=== PATIENT | female | born 1960 | race Caucasian/White ===

== ENCOUNTER 2023-01-23 05:06 | Observation (INO) ==
--- NOTE | 2022-12-25 12:38 | PAT Medication Instructions ---
Medication Instructions Date of Service December 25, 2022 Home Medications Vitamin C 1 tab PO QAM Vitamin D3 1 tab PO QAM acetaminophen 650 mg tablet,extended release 650 mg PO Q12H PRN hydrochlorothiazide 25 mg tablet 25 mg PO QAM lisinopril 40 mg tablet 40 mg PO QAM DO NOT take the morning of surgery Vitamin C 1 tab PO QAM Vitamin D3 1 tab PO QAM hydrochlorothiazide 25 mg tablet 25 mg PO QAM lisinopril 40 mg tablet 40 mg PO QAM Take morning of surgery With a small sip of water, OTHERWISE NOTHING TO EAT OR DRINK AFTER MIDNIGHT: acetaminophen 650 mg tablet,extended release 650 mg PO Q12H PRN(if needed) Take evening before surgery acetaminophen 650 mg tablet,extended release 650 mg PO Q12H PRN(if needed) Other Notes If you have any questions please call us at [phone] or [phone] or [phone] or [phone]
--- NOTE | 2023-01-03 08:26 | Anesthesiology Consultation ---
Date of Service January 03, 2023 Assessment & Plan (1) Encounter for pre-operative examination: - K 5.4: I called PCP office and relayed K level. Optimization form also completed, to be faxed with PAT testing to PCP. - Outpatient joint assessment: Patient is currently scheduled for inpatient pathway. If re-evaluated pending system levels during current pandemic/surgeon requests outpatient pathway, patient is not recommended candidate for outpatient joint program from anesthesia standpoint. Chart Review Chart Review: Pending: Refer to Additional Notes / Consult section and Patient seen in Pre Admission Testing Teaching & Discussion Pre-Anesthesia Teaching/Discussion Notes: Instructed NPO after midnight before surgery, except medications with 15 cc of water. Medication instructions provided according to the PAT guidelines. History Surgery Operation Date: 01/23/23 07:00 Proposed Procedures p Left Total Knee Arthroplasty - Jt Barksdale MD Height/Weight Height: 5 ft 3 in Weight: 112.491 kg Allergies Allergy/AdvReac Type Severity Reaction Status Date / Time adhesive tape Allergy Rash Verified 12/25/22 11:59 Medications Home Medications Medication Instructions Recorded Confirmed Last Taken Vitamin C 1 tab PO QAM 12/25/22 12/25/22 Unknown Vitamin D3 1 tab PO QAM 12/25/22 12/25/22 Unknown acetaminophen 650 mg 650 mg PO Q12H PRN Pain 12/25/22 12/25/22 Unknown tablet,extended release hydrochlorothiazide 25 mg tablet 25 mg PO QAM 12/25/22 12/25/22 Unknown lisinopril 40 mg tablet 40 mg PO QAM 12/25/22 12/25/22 Unknown atorvastatin 10 mg tablet 10 mg PO QAM 01/03/23 01/03/23 Unknown Additional Notes: Pt reports [id number] mg QAM was recently added to her medications by PCP. She was advised to take medication as usual including DOS and this was written on provided medication instructions. She verbalized understanding and agreement, denied questions, concerns or additional medications/supplements. 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 Exercise / Class Metabolic Activity III < 4 Walking/Shop/Light housework (denies chest discomfort or shortness of breath with usual activities) Past Family History Family History Father Slow to wake up after anesthesia Past Surgical History Surgical History History of colonoscopy History of lumbar surgery History of removal of cyst breast History of tonsillectomy History of wisdom tooth extraction Past Anesthesia History No Hx of Anesthesia Complications and Other (slow to wake after anesthesia; father slow to wake after anesthesia) History of PONV No Hx of PONV and Hx of Motion Sickness Social History Smoking Status: Never smoker Do You Dip or Chew Tobacco: No Hx Alcohol Use: Yes alcohol intake frequency: holidays/special occasions only Hx Substance Use: No substance use type: does not use Review of Systems Occasional snoring, denies witnessed apneas. Patient denies chest pain, shortness of breath, dyspnea on exertion, reflux, fever, chills, cough, wheezing, or palpitations. Physical Exam Vital Signs Vitals BP 128/78 P 70 TEMP 97.9 SP02 100% on RA RESP 17 Physical Full cervical extension range of motion without pain TMD 3.5 finger breadths Mallampati Score 1 Dentition: intact, denies chipped or loose teeth, caps/crowns, implants or bridges Lungs: normal respiratory effort. Good air movement, clear throughout to auscultation, no adventitious breath sounds Cardiac: regular rate and rhythm, no murmurs noted Carotid arteries: negative bruit bilat Lab Results Anesthesia Preop Results Results Anesthesia Widget: WBC 6.95 K/ul (4.8-10.8) 01/03/23 Hgb 10.9 g/dl (12.0-16.0) L 01/03/23 Hct 33.7 % (37.0-47.0) L 01/03/23 Plt 304 K/uL (130-400) 01/03/23 Na 138 mmol/L (136-145) 01/03/23 K 5.4 mmol/L (3.5-5.1) H 01/03/23 Cl 106 mmol/L (98-107) 01/03/23 CO2 24 mmol/L (21-32) 01/03/23 BUN 45 mg/dl (6-23) H 01/03/23 Creat 1.29 mg/dl (0.6-1.2) H 01/03/23 Glucose Level 93 mg/dl (70-99(Fasting)) 01/03/23 PT 10.6 Seconds (9.0-12.0) 01/03/23 PTT 28.4 Seconds (21.0-31.0) 01/03/23 INR 1.0 (0.9-1.1) 01/03/23 Urine Color Yellow 01/03/23 Urine Appearance Clear (Clear) 01/03/23 Urine pH 6.0 (4.5-7.5) 01/03/23 Urine Specific [place] 1.015 (1.000-1.030) 01/03/23 Urine Protein Negative (Negative) 01/03/23 Urine Glucose (UA) Negative (Negative) 01/03/23 Urine Ketones Negative (Negative) 01/03/23 Urine Blood Negative (Negative) 01/03/23 Urine Nitrite Negative (Negative) 01/03/23 Urine Bilirubin Negative (Negative) 01/03/23 Urine Urobilinogen Negative (Negative) 01/03/23 Urine Leukocyte Esterase Negative (Negative) 01/03/23 Blood Type A Positive 01/03/23 Antibody Screen NEGATIVE 01/03/23 Testing Electrocardiogram Date: 12/27/22 NSR, rate 75 bpm Chest X-Ray Date: 01/03/23 No acute process COVID-19 Risk Screen Screening Information COVID-19 Screen Date: 01/03/23 Exposure 21 Days Family/Household +COVID Last 21 Days: No Exposure 10 Days Any COVID Exposure Last 10 Days: No Symptoms Last 10 Days Experienced COVID Sx Last 10 Days: No + COVID 0-90 Days COVID + in Last 0-90 Days: No
--- NOTE | 2023-01-22 11:19 | History & Physical Report ---
Date of Service January 22, 2023 Assessment & Plan (1) Primary osteoarthritis of left knee: Plan: Treatment options discussed with the patient. She has failed conservative measures. She would like to proceed with surgical intervention. Risks, benefits and alternatives to surgery including but not limited to infection, DVT, pain, stiffness, need for revision surgery, damage to blood vessels, damage to nerves, PE, , were discussed with the patient and they wish to proceed. Plan for left total knee arthroplasty scheduled for [facility] on January [address] Barksdale. Plan on Xarelto postoperatively for DVT prophylaxis. Plan on outpatient physical therapy. All questions answered. Patient will follow-up postop. History of Present Illness Chief Complaint: Left knee pain Primary Care Provider: Elizabeth Pringle PA-C 62-year-old female with past medical history significant for hypertension, high cholesterol who presents with ongoing left knee pain. Patient has pain interfering with her daily activities. She has failed conservative measures including injections and anti-inflammatories. She would like to proceed with surgical invention. Patient denies headaches, sweats, fevers, chills, double vision, blurred vision, cough, sore throat, dysphagia, chest pain, sob, wheezing, n/v/d/c, numbness, tingling, fatigue, urinary symptoms, mood disorders. ROS positive for left knee pain and stiffness. Allergies Allergy/AdvReac Type Severity Reaction Status Date / Time adhesive tape Allergy Rash Verified 12/25/22 11:59 Home Medications Medication Instructions Recorded Confirmed Type Vitamin C 1 tab PO QAM 12/25/22 12/25/22 History Vitamin D3 1 tab PO QAM 12/25/22 12/25/22 History acetaminophen 650 mg 650 mg PO Q12H PRN Pain 12/25/22 12/25/22 History tablet,extended release hydrochlorothiazide 25 mg tablet 25 mg PO QAM 12/25/22 12/25/22 History lisinopril 40 mg tablet 40 mg PO QAM 12/25/22 12/25/22 History atorvastatin 10 mg tablet 10 mg PO QAM 01/03/23 01/03/23 History Past Med/Surg History Medical History Borderline hyperlipidemia History of benign breast biopsy HTN (hypertension) controlled, stable per pt Slow to wake up after anesthesia denies needing re-intubation Urinary incontinence per pt, r/t previous back surgery "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" Surgical History History of colonoscopy History of lumbar surgery History of removal of cyst breast History of tonsillectomy History of wisdom tooth extraction Family History Father Slow to wake up after anesthesia Social History Smoking Status: Never smoker Second Hand Exposure: No; Do You Dip or Chew Tobacco: No; Hx Alcohol Use: Yes Hx Substance Use: No Preferred Language: Tamazight Communication Ability: Effective Header Set Up Operator Required: No Beliefs That Will Affect Care: None Current Living Situation: Spouse Feels Safe at Home: Yes Safety Concerns: Feels Safe At This Time Assistive Devices: Glasses Review of Systems All systems reviewed & are unremarkable except as noted in HPI & below Physical Exam Constitutional: well developed and well nourished; no acute distress Eyes: PERRL, conjunctivae normal, anicteric sclerae ENMT: external ear and nose normal, oropharynx normal Neck: trachea midline, no thyromegaly Respiratory: normal respiratory effort, lungs clear to auscultation Cardiovascular: RRR, no murmur, no edema Musculoskeletal: Left knee: Varus alignment. There is tenderness medial joint line. Range of motion is 10 to 115 degrees. Crepitation with range of motion. Positive Pasha's. Stable to valgus varus stress test. Skin: no rashes, warm and dry Neurologic: patellar DTR's 2+ bilat, sensation intact Psychiatric: A+Ox3, euthymic affect Results & Data Diagnostic Findings Left knee radiographs demonstrate tricompartment arthritic changes, [id number] medial compartment. There is particular osteophytes all 3 compartments.
[2023-01-23] MEDS ORDERED: dexAMETHasone 4 MG TAB PO SCH (06:00)
[2023-01-23] MEDS ORDERED: TRANEXAMIC ACID 1,000 MG **IV Pre-op IV SCH (06:00)
[2023-01-23] MEDS ORDERED: TRANEXAMIC ACID 1,000 MG **IV Intra-op IV SCH (06:00)
[2023-01-23] MEDS ORDERED: GABAPENTIN 600 MG DOSE PO SCH (06:00)
[2023-01-23] MEDS ORDERED: METOCLOPRAMIDE HCL 10 MG TABLET PO SCH (06:00)
[2023-01-23] MEDS ORDERED: ACETAMINOPHEN 500 MG TAB PO SCH (06:00)
[2023-01-23] MEDS ORDERED: ROPIVACAINE 0.5% HCL/PF 150 MG, BUPIVACAINE 0.75% MPF 20 ML, EPINEPHrine 30MG/30ML (OR ... INSTIL SCH (06:00)
[2023-01-23] MEDS ORDERED: LR 500ML BOLUS, THEN 15ML/HR IV SCH (06:00)
[2023-01-23] MEDS ORDERED: ceFAZolin 2000MG 2,000 MG/15 ML SYR IV SCH (06:00)
[2023-01-23] MEDS ORDERED: CeleBREX 200 MG CAP PO SCH (06:00)
[2023-01-23] MEDS ORDERED: FAMOTIDINE 20 MG TAB PO SCH (06:00)
[2023-01-23] MEDS ORDERED: BUPIVACAINE 0.25% PF 30 ML VIAL ONE (06:25)
[2023-01-23] MEDS ORDERED: BUPIVACAINE 0.5 % 5 MG/1 ML PF 10ML VIAL ONE (06:25)
[2023-01-23] MEDS ORDERED: DEXAMETHASONE SOD INJ 4 MG/ML VIAL ONE (06:26)
[2023-01-23] MEDS ORDERED: EPINEPHrine INJ 1 MG/ML AMP ONE (06:26)
[2023-01-23] MEDS ORDERED: MIDAZOLAM HCL 1 MG/ML 2ML VIAL ONE (06:33)
[2023-01-23] MEDS ORDERED: LIDOCAINE 2% 2 ML VIAL/AMP(20MG/ML) INFIL ONE (06:33)
[2023-01-23] MEDS ORDERED: PROPOFOL IV EMULSION 10 MG/ML 20 ML VIAL IV ONE ×5 (06:33→09:19)
[2023-01-23] MEDS ORDERED: fentaNYL citrate PF 100 MCG/2 ML VIAL ONE (06:33)
[2023-01-23] MEDS ORDERED: ORTHO JOINT ANESTHETIC ONE (07:01)
[2023-01-23] MEDS ORDERED: ATROPINE SULFATE 0.1 MG/ML 10ML SYR IV PRN (07:03)
[2023-01-23] MEDS ORDERED: ONDANSETRON INJ 2 MG/ML 2 ML VIAL IV PRN ×2 (07:03→10:42)
[2023-01-23] MEDS ORDERED: fentaNYL citrate PF 100 MCG/2 ML VIAL IV PRN (07:03)
[2023-01-23] MEDS ORDERED: ePHEDrine sulfate 50 MG/ML AMP IV PRN (07:03)
--- NOTE | 2023-01-23 07:03 | Anesthesiology Consultation ---
Date of Service January 23, 2023 Assessment & Plan Chart Review Chart Review: Acceptable Risk for Surgery and Patient NOT seen in Pre Admission Testing Consults Requested none ASA ASA3 Proposed Anesthesia Anesthesia Type: MAC Spinal Regional Regional Laterality: Left Site: Adductor Canal Risk / Benefits Reviewed With: PT / POA / Parent / Guardian, Accepts Plan and Informed Consent Obtained History Surgery Operation Date: 01/23/23 07:00 Proposed Procedures p Left Total Knee Arthroplasty - Jt Barksdale MD Height/Weight Height: 5 ft 3 in Weight: 111.901 kg Allergies Allergy/AdvReac Type Severity Reaction Status Date / Time adhesive tape Allergy Rash Verified 01/23/23 05:54 Medications Home Medications Medication Instructions Recorded Confirmed Last Taken Vitamin C 1 tab PO QAM 12/25/22 01/23/23 01/22/23 17:00 Vitamin D3 1 tab PO QAM 12/25/22 01/23/23 01/22/23 17:00 acetaminophen 650 mg 650 mg PO Q12H PRN Pain 12/25/22 01/23/23 01/21/23 tablet,extended release hydrochlorothiazide 25 mg tablet 25 mg PO QAM 12/25/22 01/23/23 01/22/23 07:00 lisinopril 40 mg tablet 40 mg PO QAM 12/25/22 01/23/23 01/22/23 07:00 atorvastatin 10 mg tablet 10 mg PO QAM 01/03/23 01/23/23 01/23/23 03:15 Active Medications Generic Name Dose Route Start Last Admin Trade Name Freq PRN Reason Stop Dose Admin Acetaminophen 1,000 mg 01/23/23 06:00 01/23/23 05:57 Acetaminophen 500 Mg Tab PO 01/23/23 18:00 1,000 mg PREOP ALISON Administration Celecoxib 200 mg 01/23/23 06:00 01/23/23 05:57 Celebrex 200 Mg Cap PO 01/23/23 18:00 200 mg PREOP ALISON Administration Dexamethasone 8 mg 01/23/23 06:00 01/23/23 05:57 Dexamethasone 4 Mg Tab PO 01/23/23 18:00 8 mg PREOP ALISON Administration Famotidine 20 mg 01/23/23 06:00 01/23/23 05:57 Famotidine 20 Mg Tab PO 01/23/23 18:00 20 mg PREOP ALISON Administration Gabapentin 600 mg 01/23/23 06:00 01/23/23 05:57 Gabapentin 600 Mg Dose PO 01/23/23 18:00 600 mg PREOP ALISON Administration Lactated Ringer's 1,000 mls @ 15 mls/hr 01/23/23 06:00 01/23/23 05:53 Lr IV 01/23/23 18:00 15 mls/hr .Q24H ALISON Administration Metoclopramide HCl 10 mg 01/23/23 06:00 01/23/23 05:57 Metoclopramide Hcl 10 Mg Tablet PO 01/23/23 18:00 10 mg PREOP ALISON Administration NPO Date Last Intake of Fluids: 01/22/23 Time Last Intake of Fluids: 22:00 Date Last Intake of Solids: 01/22/23 Time Last Intake of Solids: 14:00 Past Medical History Medical History Borderline hyperlipidemia History of benign breast biopsy HTN (hypertension) controlled, stable per pt Slow to wake up after anesthesia denies needing re-intubation Urinary incontinence per pt, r/t previous back surgery "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" Exercise / Class Metabolic Activity II 4-5 Yardwork/Stairs/Walk up hill Past Family History Family History Father Slow to wake up after anesthesia Past Surgical History Surgical History History of colonoscopy History of lumbar surgery History of removal of cyst breast History of tonsillectomy History of wisdom tooth extraction Past Anesthesia History No Hx of Anesthesia Complications and No Family Hx of Anesthesia Complications History of PONV No Hx of PONV and No Hx of Motion Sickness Social History Smoking Status: Never smoker Do You Dip or Chew Tobacco: No Hx Alcohol Use: Yes alcohol intake frequency: holidays/special occasions only Hx Substance Use: No substance use type: does not use Physical Exam Vital Signs Last Vital Signs Temp 36.7 C 01/23/23 05:36 Pulse 90 01/23/23 05:36 Resp 20 01/23/23 05:36 BP 148/80 H 01/23/23 05:36 Pulse Ox 96 01/23/23 05:36 O2 Del Method Room Air 01/23/23 05:36 Constitutional + obese ENMT Mouth: no dentition abnormality Thyromental Distance: > or= 3.5 Finger Breadths Mallampati Class: II Neck normal visual inspection Respiratory normal respiratory effort Auscultation: lungs clear to auscultation bilaterally Cardiovascular Rate/Rhythm: regular rate and regular rhythm Psychiatric Orientation: alert Testing Electrocardiogram Date: 12/27/22 NSR, rate 75 bpm Chest X-Ray Date: 01/03/23 No acute process
--- NOTE | 2023-01-23 07:06 | History & Physical Bridge Note ---
Date of Service January 23, 2023 History & Physical Bridge Note I have examined the patient, reviewed the History & Physical and in the interval since the performance of the History & Physical I have noted the following changes of clinical significance: no changes noted
[2023-01-23] MEDS ORDERED: ONDANSETRON INJ 2 MG/ML 2 ML VIAL ONE (07:38)
[2023-01-23] MEDS ORDERED: ePHEDrine sulfate 50 MG/ML SYR ONE (07:57)
[2023-01-23] MEDS ORDERED: PHENYLEPHRINE 100MCG/ML 5ML SYR ONE (07:57)
[2023-01-23] MEDS ORDERED: PHENYLEPHRINE HCL 10 MG/ML VIAL ONE (08:11)
--- NOTE | 2023-01-23 09:20 | Post Operative Brief Note ---
Immediate Post Op Note v1 Date of Surgery January 23, 2023 Pre & Post Diagnosis Operation Date: 01/23/23 07:00 Pre-Op Diagnosis: Left Knee Osteoarthritis, Morbid obesity BMI 43.7 Post-Op Diagnosis: Left Knee Osteoarthritis., Morbid obesity BMI 43.7 I identified the patient and participated in the time-out.: Yes Procedure Operation Date: 01/23/23 07:00 Actual Procedures p Left Total Knee Arthroplasty(Left), application felicity and Acticoat superficial wound VAC, increased difficulty morbid obesity BMI 43.7 - Jt Barksdale MD Surgeon Jt Barksdale MD Ornamental Ironworker Senthil Valencia. Estimated Blood Loss 5 Findings Consistent with Post-Op Diagnosis Specimens Bone cuts Drains Hemovac Drain Anesthesia Type MAC Spinal Regional Complications none Disposition Disposition: Recovery Room Overlapping Procedure I was present for: the critical portions of procedure. Back up surgeon: was not required during procedure.
--- NOTE | 2023-01-23 10:08 | Anesthesiology Progress Note ---
Date of Service January 23, 2023 Anesthesia Post Procedure Vital Signs Vital Signs: Temp Pulse Resp BP Pulse Ox O2 Del Method O2 Flow Rate 01/23/23 10:00 87 16 99/53 L 94 Room Air 01/23/23 09:50 85 17 106/52 L 96 Nasal Cannula 2 01/23/23 09:43 36.1 C L 88 17 96/52 L 96 Nasal Cannula 2 01/23/23 05:36 36.7 C 90 20 148/80 H 96 Room Air Pain Intensity Left Knee: Pain Intensity: 2 Transfer of Care Handoff Completed per policy Notes Mental Status: alert / awake / arousable Patient Amnestic to Procedure: Yes Nausea / Vomiting: adequately controlled Pain: adequately controlled Airway Patency, RR, SpO2: stable & adequate BP & HR: stable & adequate Hydration State: stable & adequate Neuraxial Anesthesia: was administered and sensory block is resolving Anesthetic Complications: no major complications apparent and Pt Satisfied with anesthetic care
--- NOTE | 2023-01-23 10:34 | XRay Report ---
LEFT KNEE 2 VIEWS History: Left total knee arthroplasty. Degenerative arthritis. Postop. FINDINGS: The patient is status post a left total knee arthroplasty. The hardware is intact. No fract ure or dislocation. Skin saud and surgical drains are in place. IMPRESSION: Left total knee arthroplasty. No evidence for hardware complication. ACT 112: Negative or not required by law. Electronically signed by: Usman Sanchez M.D. 01/23/2023 10:33 AM
[2023-01-23] MEDS ORDERED: bisacodyL 10 MG SUPP PR PRN (10:42)
[2023-01-23] MEDS ORDERED: HYDROmorphone INJ 0.5 MG/0.5 ML SYR IV PRN (10:42)
[2023-01-23] MEDS ORDERED: MAGNESIUM HYDROXIDE SUSP 30 ML UDC PO PRN (10:42)
[2023-01-23] MEDS ORDERED: diphenhydrAMINE 50 MG/ML VIAL IV PRN (10:42)
[2023-01-23] MEDS ORDERED: NALOXONE HCL 0.4 MG/1 ML VIAL/CARP IV PRN (10:42)
[2023-01-23] MEDS: SODIUM CHLORIDE 0.9% 1000ML 1,000 ML IV SCH ×2 (11:11→20:28)
[2023-01-23] MEDS: oxyCODONE HCL IR 5 MG TAB (IMMEDIATE RELEASE) PO PRN ×2 (11:17→18:43)
[2023-01-23] MEDS: ACETAMINOPHEN 500 MG TAB PO SCH ×2 (13:46→22:06)
[2023-01-23] MEDS: ceFAZolin 2000MG 2,000 MG/15 ML SYR IV SCH ×2 (16:14→23:22)
--- NOTE | 2023-01-23 16:52 | Hospitalist Consultation ---
Date of Consultation January 23, 2023 Assessment & Plan (1) Status post left knee replacement: (2) CKD (chronic kidney disease), stage III: (3) HTN (hypertension): (4) HLD (hyperlipidemia): Plan This is a 62yo F with a PMH of HTN, HLD, CKD III, OA and other medical problems listed below who is POD#0 s/p p Left Total Knee Arthroplasty by Dr. Barksdale. S/p L TKA POD#0 s/p p Left Total Knee Arthroplasty by Dr. Barksdale Per ortho for pain control, wound care, anticoagulation and activities Monitor H&H (pre-op hgb 10.9, EBL 5ml), continue incentive spirometry, PT/OT when appropriate HTN BP on lower side of normal post-op - currenty 101/71. Will hold AM hctz until labs return, patient assessed. Continue lisinopril with hold parameters HLD Continue statin CKD III Pre-op Cr 1.29. Monitor with daily BMP DVT Ppx: Xarelto per primary service Code status: PCP: Elizabeth Pringle PA-C Dispo: Per primary service Patient seen in collaboration with Dr. Beach. Please see addendum. I spent a total of 55 minutes coordinating, documenting, and providing care for this patient excluding time spent in the performance of separately billed services. Supervising Physician Co-Signing Physician Notes I have seen and examined the patient and have discussed the case with the provider above. I agree with the assessment and plan as stated. 74 yo M who is stable post op with pain well managed. Reports numbness in right hand. PE reveals stable vitals. Clear lungs to auscultation and cardiac exam WNL with S1/2 heard, no murmurs, and no peripheral edema. Right arm in sling with hemovac in place. Medications reviewed. Notably, on the list above, she is not currently on Xarelto, Miralax or oxycodone. Those were ordered for her at discharge from this hospitalization and are showing on the current list . Specifically Xarelto as DVT prophylaxis. She has a noted h/o positive Cologard test and is scheduled for upcoming outpatient colonoscopy per outpatient medical clearance note. Would keep this in mind if she were to experience any blood per rectum, not currently present. Cont the care as outlined above. Appreciate the consultation. Winder, DO History of Present Illness Reason for Consultation: post op med mgmt Attending Physician: Jt Barksdale MD History of Present Illness This is a 62yo F with a PMH of HTN, HLD, CKD III, OA and other medical problems listed below who is POD#0 s/p p Left Total Knee Arthroplasty by Dr. Barkdsale. Patient is feeling well postoperatively. Denies any pain or paresthesias in left lower extremity. Resting comfortably and tolerated lunch without any issue. Denies any fever, chills, congestion, lightheadedness, chest pain, shortness of breath, nausea, vomiting, abdominal pain, dysuria, diarrhea or constipation. Has gone up to ambulate to bathroom twice to urinate without issue. Took all morning medications as directed. Follows up with primary care in [facility]. Allergies Allergy/AdvReac Type Severity Reaction Status Date / Time adhesive tape Allergy Rash Verified 01/23/23 05:54 Home Medications Medication Instructions Recorded Confirmed Type Vitamin C 1 tab PO QAM 12/25/22 01/23/23 History Vitamin D3 1 tab PO QAM 12/25/22 01/23/23 History acetaminophen 650 mg 650 mg PO Q12H PRN Pain 12/25/22 01/23/23 History tablet,extended release hydrochlorothiazide 25 mg tablet 25 mg PO QAM 12/25/22 01/23/23 History lisinopril 40 mg tablet 40 mg PO QAM 12/25/22 01/23/23 History atorvastatin 10 mg tablet 10 mg PO QAM 01/03/23 01/23/23 History acetaminophen 500 mg tablet 1,000 mg PO Q8 14 days #84 tabs 01/23/23 01/23/23 Rx (Tylenol Extra Strength) oxycodone 5 mg tablet 5 mg PO Q4H PRN pain #30 tabs 01/23/23 01/23/23 Rx polyethylene glycol 3350 17 gram 17 g PO DAILY PRN constipation #5 01/23/23 Rx oral powder packet (Miralax) ea rivaroxaban 10 mg tablet (Xarelto) 10 mg PO DAILY 30 days #30 tabs 01/23/23 01/23/23 Rx Patient History Medical History CKD (chronic kidney disease), stage III History of benign breast biopsy HLD (hyperlipidemia) HTN (hypertension) controlled, stable per pt Slow to wake up after anesthesia denies needing re-intubation Urinary incontinence per pt, r/t previous back surgery "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" Surgical History History of colonoscopy History of lumbar surgery History of removal of cyst breast History of tonsillectomy History of wisdom tooth extraction Family History Father Slow to wake up after anesthesia Other Diabetes Heart disease Social History Smoking Status: Never smoker Second Hand Exposure: No; Do You Dip or Chew Tobacco: No; Hx Alcohol Use: Yes Hx Substance Use: No Preferred Language: Maltese Communication Ability: Effective Medical Record Librarian Required: No Beliefs That Will Affect Care: None Current Living Situation: Spouse Feels Safe at Home: Yes Safety Concerns: Feels Safe At This Time Assistive Devices: Glasses Review of Systems Review of Systems: At least ten systems reviewed and negative except as noted in the HPI. Physical Exam Physical Exam: General Appearance: WD/WN, vitals as above, NAD, sitting in bedside chair, plea rafaela, conversing easily Head: normocephalic, atraumatic Eyes: normal inspection, PERRL ENT: external ear and nose normal, oropharynx normal Neck: normal visual inspection Respiratory: normal respiratory effort, lungs clear to auscultation, no wheeze, rales, rhonchi. No accessory muscle use Cardiovascular: regular rate, rhythm, no murmur, normal peripheral pulses, no BLE edema Abdomen/GI: normal bowel sounds, soft, nontender, no hepatosplenomegaly Extremities/Musculoskeletal: + L knee surgical dressing c/d/i, 2 hemovac drains visualized, no cyanosis or clubbing, extremities motor strength 5/5 Neurologic: PERRL, CN's II-XI intact bilaterally and moves all extremities Psychiatric: A+Ox3, euthymic affect Skin: no rashes, normal color, warm/dry Results & Data Results & Data Vital Signs (Past 12 Hours) Vital Signs Temp Pulse Pulse Resp BP Pulse Ox O2 Del Method 01/23/23 13:36 36.5 C 86 16 101/71 93 Room Air 07/13/23 12:42 36.4 C L 90 16 114/74 96 Room Air 01/23/23 11:41 36.3 C L 84 16 111/70 94 Room Air 01/23/23 11:13 36.3 C L 84 16 97/64 L 94 Room Air 01/23/23 10:44 36.5 C 85 14 94/61 L 96 Room Air 01/23/23 10:25 36.4 C L 83 19 106/57 L 95 Room Air 01/23/23 10:10 36.2 C L 89 16 102/60 94 Room Air 01/23/23 10:00 87 16 99/53 L 94 Room Air 01/23/23 09:50 85 17 106/52 L 96 Nasal Cannula 01/23/23 09:43 36.1 C L 88 17 96/52 L 96 Nasal Cannula 01/23/23 05:36 36.7 C 90 20 148/80 H 96 Room Air O2 Flow Rate 01/23/23 13:36 01/23/23 12:42 01/23/23 11:41 01/23/23 11:13 01/23/23 10:44 01/23/23 10:25 01/23/23 10:10 01/23/23 10:00 01/23/23 09:50 2 01/23/23 09:43 2 01/23/23 05:36 Diagnostic Findings Knee X-Ray 01/23/23 09:52 LEFT KNEE 2 VIEWS History: Left total knee arthroplasty. Degenerative arthritis. Postop. FINDINGS: The patient is status post a left total knee arthroplasty. The hardware is intact. No fracture or dislocation. Skin saud and surgical drains are in place. IMPRESSION: Left total knee arthroplasty. No evidence for hardware complication. ACT 112: Negative or not required by law. Electronically signed by: Usman Sanchez M.D. 01/23/2023 10:33 AM
--- NOTE | 2023-01-23 17:29 | Operative Report ---
Post Operative Report Pre & Post Diagnosis Operation Date: 01/23/23 07:00 Pre-Op Diagnosis: Left Knee Osteoarthritis, morbid obesity BMI 43.7 postoperative diagnosis: the same I identified the patient and participated in the time-out.: Yes Procedure Operation Date: 01/23/23 07:00 Actual Procedures p Left Total Knee Arthroplasty(Left), application gianni and Acticoat superficial wound VAC, increased difficulty morbid obesity BMI 43.7 - Jt Barksdale MD Surgeon Jt Barksdale MD Buffer Operator Senthil Valencia. Estimated Blood Loss 5 Findings Consistent with Post-Op Diagnosis Specimens bone cuts Drains 2 Hemovac Anesthesia Type MAC Spinal Regional Complications none Disposition Disposition: Recovery Room Indications 62-year-old female with end-stage severe osteoarthritis left knee and end-stage osteoarthritis right knee. Patient has failed all conservative management. Left knee x-rays demonstrate a marked varus knee with bone loss in the medial compartment with tricompartmental osteoarthritis. Description of Procedure Patient was taken to the operating room placed supine on the operating table and anesthetized under spinal MAC regional block anesthesia. Exam under anesthesia demonstrated 20 degree flexion contracture with further flexion to 95 degrees only. There is no pseudolaxity in a very stiff varus knee with an obese upper thigh and obesity of the knee. A pneumatic tourniquet was placed about the obese thigh of the Left lower extremity. The left lower extremity was prepped and draped in usual sterile fashion. The leg was elevated exsanguinated with an Esmarch bandage and the pneumatic tourniquet was raised to 350mm mercury. An anterior incision was made across the left knee. The skin was incised longitudinally subcutaneous flaps were elevated and an incision was made through the medial retinaculum extending up into the mid third of the quadriceps tendon and extended down to the medial tibial tubercle. patient had edematous subcutaneous tissues. Intra-articular findings demonstrated Severe tricompartmental osteoarthritis with large osteophytes all compartments and posteriorly as well with chronic torn medial meniscus bone loss in the medial compartment with varus knee. There was bone exposed on the lateral femoral condyle due to subluxation medially with [id number] in the lateral compartment against the tibial spine. There was partial tearing of the ACL. The knee was exposed by excising the infrapatellar fat pad, excising the meniscal remnants and anterior And posterior cruciate ligament. Any inflamed synovial tissue was resected. The fat pad over the anterior femur was resected for placement of the component in that area. The lateral synovial bands were release. The femur was exposed. intramedullary drill hole was made into the femoral canal. The distal femoral cutting block was applied. +2 additional cut was made due to the flexion contracture. The distal femoral cut was made with the oscillating saw. bone quality was hard and excellent.sizing guide was placed and drill holes were placed in 3 degrees of external rotation. The size 5, 4-in-1 cutting block was placed. The anterior and posterior chamfer cuts were made. The knee was extended and a subperiosteal peel lateral release was performed around the patella. The patella width was measured and width was reproduced using freehand cut technique. The 32 millimeter symmetrical patella was used. 3 drill holes are made for the pegs. The tibia was exposed. An External tibial cutting guide was adjusted to make appropriate proximal tibial cut cutting below the most deficient medial side and in slight varus from the perpendicular to the long axis of the tibia due to the bone loss in the medial compartment. Cutting guide was placed and the proximal cut was made with the oscillating saw. All osteophytes were resected. This included using a curved osteotome An angled curette to remove large posterior femoral condylar osteophytes medially and laterally. The lamina grocery deliverer was used to assess ligamentous balance and the ligaments were balanced in extension and flexion. no releases were required. The tibia was reexposed and measured for a size D tibial component. This was externally rotated in line with the tibial tubercle and the fixation pins were drilled. The proximal tibia was fashioned with the drill and punch. The size5 PS femoral trial was inserted. notch cut was made. The trial CPS inserts were used. The 12 mm insert gave balanced ligaments through full range of motion. The patella tracked centrally the trials were removed. The orthomix anesthetic cocktail was injected per protocol. The knee was then copiously irrigated with pulsatile lavage saline solution. The final components were cemented with Refobacin bone cement. The final components were 5 standard PS left persona femur, left D tibia with a 14 byx 30 mm stem extension, 12 CPS tibial polyethylene and a 32 patella After the cement cured with the knee in full extension the Betadine soak was used per protocol. The knee joint was copiously irrigated with pulsatile lavage saline solution . 2 drains were brought out laterally and connected to a Hemovac. The quadriceps tendon and medial retinaculum were closed with interrupted [id number] #1 Vicryl sutures. The knee was taken through a full range of motion which was 0 through 125 degrees and the repair was secure. The subcutaneous tissues were closed with 2-0 Vicryl sutures and skin was closed with Home.A Gianni and Acticoat superficial wound VAC was applied and the patient tolerated the procedure well. Senthil Shaw my physician engineer second assistant participated as process assistant and was an integral part in all aspects of the procedure He assisted in soft tissue retraction, instrument management ,leg positioning, the closure, application of superficial wound VAC and will participate in the postoperative care of the patient. was increased level difficulty due to morbid obesity adding 25 minutes to the procedure. I attest to the content of the Intraoperative Record and any orders documented therein. Any exceptions are noted below.
[2023-01-23] MEDS: DOCUSATE SODIUM 100 MG CAP PO SCH (20:27)
[2023-01-23] MEDS: oxyCODONE HCL 10 MG TABCR (OxyCONTIN) PO SCH (20:28)
[2023-01-23] MEDS ORDERED: SENNA 8.6 MG TAB PO SCH (21:00)
[2023-01-24] MEDS: ACETAMINOPHEN 500 MG TAB PO SCH (05:47)
[2023-01-24 07:21] LABS: Hematocrit (blood only) 29.9 % (37.0-47.0); Mean Corpuscular Hemoglobin 30.8 pg (25.0-34.0); Mean Corpuscular Hgb Conc 33.4 g/dL (32.0-36.0); Mean Platelet Volume 10.5 fL (9.4-12.4); Platelet Count 343 K/uL (130-400); RDW Coefficient of Variation 13.4 % (11.5-14.5); RDW Standard Deviation 45.5 fL (36.4-46.3); Red Blood Count 3.25 M/uL (4.20-5.40)
--- NOTE | 2023-01-24 07:22 | Orthopedic Progress Note ---
Date of Service January 24, 2023 Assessment & Plan (1) Primary osteoarthritis of left knee: Plan: Postop day 1 status post left total knee arthroplasty PT/OT protocols. Weightbearing as tolerated. DVT prophylaxis-rivaroxaban p.o. daily, SCDs, ISIAH gunn. Pain management as written a.m. labs pending DC planning-patient is planning for outpatient PT upon discharge Admission and Anticipated Discharge Date Admission Date: January 23, 2023 Subjective postop day 1 patient sitting in chair at the bedside. She feels good this morning. Pain is controlled. Denies shortness of breath, chest pain, lightheadedness. Physical Exam Physical Exam: Dressings are clean, dry, and intact. Calves are soft nontender. Neurovascular intact. Toes are mobile. She has good dorsiflexion and plantarflexion of the left foot. Hemovac drainage is minimal. Results & Data Vital Signs (Past 12 Hours) Vital Signs Temp Pulse Resp BP BP Pulse Ox O2 Del Method 01/24/23 05:59 36.4 C L 80 12 114/66 98 Room Air 01/24/23 03:00 36.7 C 91 H 18 115/71 95 Room Air 01/23/23 22:59 36.5 C 87 18 106/66 93 Room Air
[2023-01-24 07:35] LABS: BUN Creatinine Ratio 25.2 (10-20); Calcium 8.6 mg/dl (8.6-10.3); Creatinine Clr Calc Pharmacy 47.7 ml/min; Est GFR (African American) 43.1 ml/min; Est GFR (Non-African American) 37.2 ml/min; Potassium 4.8 mmol/L (3.5-5.1)
[2023-01-24] MEDS: oxyCODONE HCL IR 5 MG TAB (IMMEDIATE RELEASE) PO PRN (07:57)
[2023-01-24] MEDS: DOCUSATE SODIUM 100 MG CAP PO SCH (08:30)
[2023-01-24] MEDS: oxyCODONE HCL 10 MG TABCR (OxyCONTIN) PO SCH (08:31)
[2023-01-24] MEDS ORDERED: RIVAROXABAN 10 MG TABLET PO SCH (09:00)
[2023-01-24] MEDS ORDERED: ATORVASTATIN 10 MG TAB PO SCH (09:00)
[2023-01-24] MEDS ORDERED: lisinopril 40 MG TAB PO SCH (09:00)
[2023-01-24] MEDS ORDERED: MULTIVITAMIN TAB PO SCH (09:00)
[2023-01-24] MEDS ORDERED: hydroCHLOROthiazide 25 MG TAB PO SCH (09:00)
--- NOTE | 2023-01-24 11:46 | Discharge Summary ---
Date of Service January 24, 2023 Admission HPI Per Admitting Provider 62-year-old female with past medical history significant for hypertension, high cholesterol who presents with ongoing left knee pain. Patient has pain interfering with her daily activities. She has failed conservative measures including injections and anti-inflammatories. She would like to proceed with surgical invention. Patient denies headaches, sweats, fevers, chills, double vision, blurred vision, cough, sore throat, dysphagia, chest pain, sob, wheezing, n/v/d/c, numbness, tingling, fatigue, urinary symptoms, mood disorders. ROS positive for left knee pain and stiffness. Admission Exam Per Admitting Provider Physical Exam Constitutional: well developed and well nourished; no acute distress Eyes: PERRL, conjunctivae normal, anicteric sclerae ENMT: external ear and nose normal, oropharynx normal Neck: trachea midline, no thyromegaly Respiratory: normal respiratory effort, lungs clear to auscultation Cardiovascular: RRR, no murmur, no edema Musculoskeletal: Left knee: Varus alignment. There is tenderness medial joint line. Range of motion is 10 to 115 degrees. Crepitation with range of motion. Positive Pasha's. Stable to valgus varus stress test. Skin: no rashes, warm and dry Neurologic: patellar DTR's 2+ bilat, sensation intact Psychiatric: A+Ox3, euthymic affect Principal Diagnosis left knee osteoarthritis Discharge Data Allergies Allergy/AdvReac Type Severity Reaction Status Date / Time adhesive tape Allergy Rash Verified 01/23/23 05:54 Consultations 01/23/23 05:00 Consult Hospitalist Routine Procedures Performed Operation Date: 01/23/23 07:00 Actual Procedures p Left Total Knee Arthroplasty(Left) - Jt Barksdale MD Ordered Studies 01/23/23 07:03 US - OR guided needle placemen Routine Hospital Course (1) Primary osteoarthritis of left knee: Patient:ARSALAN THOMASON Admit Date:01/23/23 MR#:[id number] Att Phy:Jt Barksdale M.D. Acct ID:[id number] Miriam Phy:Elizabeth Pringle PA-C Date:1960 Fam Phy: Age:62 Location:3E Sex:F Room/Bed:[facility] cc: ~ *NOTICE TO RECEIVING [employer]/AGENCY This information is strictly Confidential and protected under [place] law. [place] law prohibits you from making any further disclosure of this information unless further disclosure is expressly permitted by the written consent of the person to whom it pertains or is authorized by law. A general authorization for the release of medical or other information is not sufficient for this purpose. Hospital accepts no responsibility if the information is made available to any other person, INCLUDING THE PATIENT. Date of Service January 24, 2023 Assessment & Plan (1) Primary osteoarthritis of left knee: Plan: Postop day 1 status post left total knee arthroplasty PT/OT protocols. Weightbearing as tolerated. DVT prophylaxis-rivaroxaban p.o. daily, SCDs, ISIAH gunn. Pain management as written a.m. labs pending (leukocytosis likely due to preop steroids/surgical stress. Asymptomatic. Mild increase in Creatinine. Maintain oral fluid intake. DC planning-patient is planning for outpatient PT upon discharge Admission and Anticipated Discharge Date Admission Date: January 23, 2023 Subjective postop day 1 patient sitting in chair at the bedside. She feels good this morning. Pain is controlled. Denies shortness of breath, chest pain, lightheadedness. Physical Exam Physical Exam: Dressings are clean, dry, and intact. Calves are soft nontender. Neurovascular intact. Toes are mobile. She has good dorsiflexion and plantarflexion of the left foot. Hemovac drainage is minimal. Results & Data Vital Signs (Past 12 Hours) Vital Signs Temp Pulse Resp BP BP Pulse Ox O2 Del Method 01/24/23 05:59 36.4 C L 80 12 114/66 98 Room Air 01/24/23 03:00 36.7 C 91 H 18 115/71 95 Room Air 01/23/23 22:59 36.5 C 87 18 106/66 93 Room Air Signed By: <Electronically signed by Jt Barksdale MD> 01/24/23 0944 <Electronically signed by Senthil Valencia PA-C> 01/24/23 07 Created:01/24/23 0720 Total Time Total Time Spent Total Time Spent (In Minutes): 10 Discharge Plan Discharge Items Patient Disposition: Home - Self-Care Reason For Visit: Left Knee Osteoarthritis Discharge Diagnosis: Left knee osteoarthritis Activity: Per Instructions section Weightbearing: Left weightbearing Weightbearing Comment: as tolerated with walker Non-emergency contact: Surgeon Call non-emergency contact if: you have any medication questions, your pain is not controlled, your temperature is above 101.5, your wound has increased redn ess and your wound has increased drainage Follow-up/Referrals: Jt Barksdale MD [Surgeon] - ( follow-up with Dr. Barksdale or his PA in 2 weeks from the day of your surgery for your first postoperative visit.) Liss Kwon MD [Outside Practitioners] - Diet: Regular Addtl Attending Provider Instructions: ACTIVITY RECOMMENDATIONS: SELF CARE INSTRUCTIONS AFTER TOTAL KNEE REPLACEMENT A. You may need to continue a physical therapy program after discharge from the hospital. There are several options available to you. Your doctor will assist you in selecting the best one for you. 1. An out-patient facility 2 to 3 times a week for therapy or home therapy. 2. Continue working on all exercises taught to you in the hospital. Your goals should be to increase bending of your knee to 90 degrees and beyond and to fully straighten your knee. B. You may progress at your own pace from walking with a walker or crutches to a cane; then to no assistive devices. C. Make walking a part of your daily routine. Be up as much as comfortable with rest periods throughout the day. Rest with leg elevation is very important. Use the ice wrap frequently for the first 3-4 weeks. D. There are no restrictions on activities. You may ride in a car, shop, participate in ice skater and all social activities. E. Wear the long elastic stockings (ISIAH hose) 20 hours a day for 2 weeks after surgery. They can be removed several times a day for laundering and for a bath. F. You may shower, no tub baths until cleared by your doctor. SPECIAL CARE INSTRUCTIONS: VERY IMPORTANT TO READ AND REVIEW A. There are a few signs you need to watch for after you are home. Call [facility] if you notice any of the followin. Increased severe knee pain. Some pain is expected especially when you exercise. 2. Increased swelling in your leg or knee; pain or swelling of the calf musc le in either lower leg. 3. Any fluid drainage from the incision. 4. Shortness of breath or chest pain. B. Please call [facility] at if you have any concerns or questions about your operation or recovery. The doctor or his nurse will return your call promptly. C. You must take antibiotics before dental work, bladder, bowel or other surgery. Your doctor will provide you with a permanent care to carry describing this precaution. IMPORTANT: * REMEMBER TO TAKE XARELTO (RIVAROXABAN) 10MG PO DAILY FOR 4 WEEKS UNLESS OTHERWISE DIRECTED. THIS IS YOUR BLOOD THINNER. * CALL IF INCREASED PAIN, REDNESS, DRAINAGE OR FEVER GREATER THAT 101. * WEAR ISIAH HOSE 20 HOURS PER DAY FOR 2 WEEKS. * Gianni Dressing - This is a large suction dressing covering your incision. This will help pull any excess drainage from the wound and allow your incision to heal properly. You may shower with this if you can keep the unit outside of the shower. If any bleeding or leakage is noted please call your doctor's office. This will remain on your incision for 7 days and then should be removed. This can be done yourself or by the home nursing staff if applicable. The entire unit is disposable once removed. Once removed, keep incision clean and dry. If redness or drainage is noted, please call your surgeon. . FOLLOW UP VISIT: If appointment is not already scheduled: Please call [facility] to make a follow-up appointment for 2 weeks after your surgery at . Stand-Alone Forms: My [facility] Self Point, Pain - Opioid Pain Management, Smoking Cessation Medications and DC Order Prescriptions: New acetaminophen [Tylenol Extra Strength] 500 mg Tablet 1,000 mg PO Q8 14 Days Qty: 84 0RF Xarelto 10 mg Tablet 10 mg PO DAILY 30 Days Qty: 30 0RF polyethylene glycol 3350 [Miralax] 17 gram powder in packet 17 g PO DAILY PRN (Reason: constipation) Qty: 5 0RF oxycodone 5 mg tablet 5 mg PO Q4H MDD 6 PRN (Reason: pain) Qty: 30 0RF Continued hydrochlorothiazide 25 mg Tablet 25 mg PO QAM lisinopril 40 mg Tablet 40 mg PO QAM Vitamin C 1 tab PO QAM Vitamin D3 1 tab PO QAM atorvastatin 10 mg Tablet 10 mg PO QAM Discontinued acetaminophen [Tylenol Arthritis] 650 mg Tablet Extended Release 650 mg PO Q12H PRN (Reason: Pain) Discharge Orders: Discharge Order (Routine); Ordered 01/24/23 Ordered By: Senthil Peterson/Other Patient Handouts: Knee Replacement Total Dc Admission Data Admit Date/Time: 01/23/23 09:52 Attending Provider: Jt Barksdale Admit Provider: Jt Barksdale Primary Care Provider: Elizabeth Pringle Other Providers: Tim Chauhan ; Norris Hudson Other Interventions: Discharge Summary Assessment (RN) Last Done: 01/24/23 09:18
--- NOTE | 2023-01-24 14:07 | Hospitalist Progress Note ---
Date of Service January 24, 2023 Assessment & Plan (1) Status post left knee replacement: (2) CKD (chronic kidney disease), stage III: (3) HTN (hypertension): (4) HLD (hyperlipidemia): Plan This is a 62yo F with a PMH of HTN, HLD, CKD III, OA and other medical problems listed below who is POD#0 s/p p Left Total Knee Arthroplasty by Dr. Barksdale. S/p L TKA POD#1 s/p p Left Total Knee Arthroplasty by Dr. Barksdale Per ortho for pain control, wound care, anticoagulation and activities Monitor H&H (pre-op hgb 10.9, EBL 5ml), continue incentive spirometry, PT/OT. HTN BP better today, can c/w home meds w/ holding parameters. HLD Continue statin CKD III Pre-op Cr 1.29. monitor. DVT Ppx: Xarelto per primary service Code status: PCP: Elizabeth Pringle PA-C Dispo: Per primary service Admission and Anticipated Discharge Date Admission Date: January 23, 2023 Subjective Patient seen and examined at bedside as a follow-up of medical management for status post left TKA. Patient was sitting up in chair, on room air, NAD, reports no new acute event overnight, reports pain under control. Patient denies any headache or dizziness or chest pain or belly pain or other review of symptoms. Physical Exam Physical Exam: General Appearance:WD/WN, vitals as above, NAD, sitting in bedside chair, pleasant, conversing easily Head: normocephalic, atraumatic Eyes:normal inspection, PERRL ENT: external ear and nose normal, oropharynx normal Neck: normal visual inspection Respiratory:normal respiratory effort, lungs clear to auscultation, no wheeze, rales, rhonchi. No accessory muscle use Cardiovascular: regular rate, rhythm, no murmur, normal peripheral pulses, no BLE edema Abdomen/GI: normal bowel sounds, soft, nontender, no hepatosplenomegaly Extremities/Musculoskeletal:+ L knee surgical dressing c/d/i, no cyanosis or clubbing, extremities motor strength 5/5 Neurologic: PERRL, CN's II-XI intact bilaterally and moves all extremities Psychiatric:A+Ox3, euthymic affect Skin: no rashes, normal color, warm/dry Results & Data Results & Data Vital Signs (Past 12 Hours) Vital Signs Temp Pulse Resp BP BP Pulse Ox O2 Del Method 01/24/23 07:41 36.4 C L 82 16 113/71 100 Room Air 01/24/23 05:59 36.4 C L 80 12 114/66 98 Room Air 01/24/23 03:00 36.7 C 91 H 18 115/71 95 Room Air
== END 2023-01-24 11:39 | disposition home or self-care (01) ==
LOC: ASU 05:06 → 3E 05:06